=== PATIENT | female | born 1955 | race African-American/Black ===

== ENCOUNTER 2021-03-19 12:25 | Emergency (ER) | payer MEDICAID ==
[~2021-03-19] VITALS: Ht 165.1 cm; Wt 72.0 kg
[2021-03-19 12:57] VITALS: BP 141/79
[2021-03-19] MEDS ORDERED: PRED5SOL2 PO (13:10)
[2021-03-19] MEDS ORDERED: PREDNISONE 5MG TABLET PO ONE (13:15)
== END 2021-03-19 14:49 | disposition home or self-care (01) ==
LOC: ER 12:39
DX: L25.9 Unspecified contact dermatitis, unspecified cause (principal); F32.9 Major depressive disorder, single episode, unspecified; F20.9 Schizophrenia, unspecified; Z88.0 Allergy status to penicillin
CPT/HCPCS: 99283; J7512

== ENCOUNTER 2022-03-03 07:23 | Emergency (ER) | payer MEDICAID ==
[~2022-03-03] VITALS: Ht 170.2 cm; Wt 62.0 kg
[~2022-03-03 07:23] MED LIST: PRED5SOL2 PO
[2022-03-03] MEDS ORDERED: MORPHINE SULFATE 4 MG/ML CPJ (NOT FOR IM USE) IV ONE (07:45)
[2022-03-03 08:26] LABS: BASOPHILS % 0.6 % (0.0-2.0); EOSINOPHILS % 0.2 % (0.0-5.0); HEMATOCRIT. 45.8 % (36.0-48.0); HEMOGLOBIN. 15.6 g/dL (12.0-16.0); LYMPHOCYTES % 24.5 % (20.0-50.0); MEAN CORPUSCULAR HEMOGLOBIN 33.6 pg (28.0-32.0); MEAN CORPUSCULAR VOLUME 98.5 fL (81.0-99.0); MEAN PLATELET VOLUME 7.2 fl (7.4-10.4); MONOCYTES % 6.3 % (2.0-8.0); NEUTROPHILS % 68.4 % (40.0-76.0); PLATELET 349 x1000/uL (130-400); RED BLOOD CELL COUNT 4.65 mill/uL (4.2-5.4); RED CELL DISTRIBUTION WIDTH 14.7 % (11.6-14.6)
[2022-03-03 08:28] LABS: CHLORIDE 106 mEq/L (98-107)
[2022-03-03] MEDS ORDERED: SODIUM CHLORIDE 0.9% 1,000 ML IV ONE (08:30)
[2022-03-03 08:33] LABS: ETHANOL BLOOD < 10 mg/dL
[2022-03-03] MEDS ORDERED: KETOROLAC 30MG/ML VIAL IV ONE (10:00)
[2022-03-03 10:21] VITALS: BP 138/76
[2022-03-03 10:28] LABS: CLARITY URINE CLEAR (CLEAR); COLOR URINE YELLOW (YELLOW); KETONES URINE TRACE (NEGATIVE); LEUKOCYTE ESTERASE URINE NEGATIVE (NEGATIVE); NITRITE URINE NEGATIVE (NEGATIVE); OCCULT BLOOD URINE NEGATIVE (NEGATIVE); PH URINE 6.5 (4.5-8.0); PROTEIN URINE 1+ (NEGATIVE); SPECIFIC GRAVITY URINE 1.013 (1.005-1.030); UROBILINOGEN URINE 0.2 E.U./dL (0.2-1.0)
[2022-03-03] MEDS ORDERED: IBUP-2028 MT (11:08)
[2022-03-03 12:10] LABS: *AMPHETAMINES SCREEN URINE PRESUMTIVE POSITIVE (NEGATIVE); *BARBITURATES SCREEN URINE NEGATIVE (NEGATIVE); *COCAINE SCREEN URINE PRESUMTIVE POSITIVE (NEGATIVE); OPIATES URINE SCREEN PRESUMTIVE POSITIVE (NEGATIVE)
[2022-03-03 12:11] LABS: *BENZODIAZEPINES SCREEN URINE NEGATIVE (NEGATIVE); CANNABINOID URINE SCREEN NEGATIVE (NEGATIVE); METHADONE URINE SCREEN NEGATIVE (NEGATIVE); PHENCYCLIDINE URINE SCREEN NEGATIVE (NEGATIVE)
== END 2022-03-03 11:45 | disposition home or self-care (01) ==
LOC: ER 07:23
DX: D25.9 Leiomyoma of uterus, unspecified (principal); K57.90 Diverticulosis of intestine, part unspecified, without perforation or abscess without bleeding; N13.30 Unspecified hydronephrosis; Z88.0 Allergy status to penicillin
CPT/HCPCS: 36415; 74176; 80053; 80305; 80320; 81003; 83690; 85025; 93005; 96374; 96375; 99285; J1885; J2270; J7030; G0480